=== PATIENT | female | born 2000 | race Caucasian/White ===

== ENCOUNTER → 2022-03-06 | Outpatient (CLI) | payer BC, OTHER ==
[2022-03-06 16:05] LABS: ALT 14 U/L (8-44); AST 15 U/L (13-35); African American GFR (CKD) 152.4 (60.0-200.0); Albumin 4.2 g/dL (3.8-4.9); Albumin/Globulin Ratio 1.59 (1.60-3.17); Alkaline Phosphatase 84 U/L (41-126); BUN/Creat Ratio 13.64 Ratio (12.00-20.00); Blood Urea Nitrogen 7.8 mg/dL (9.0-27.0); Calcium 9.5 mg/dL (8.7-10.3); Carbon Dioxide 20.5 mmol/L (20.0-27.5); Chloride 105 mmol/L (96-109); Chol/HDL Ratio 5.14 Ratio; Globulin 2.6 g/dL (1.6-3.3); Glucose 102 mg/dL (70-110); LDL Cholesterol,Calculated 149.2 mg/dL (0.0-131.0); Non-African American GFR(CKD) 131.5 (60.0-200.0); Potassium 4.7 mmol/L (3.5-5.5); Sodium 137 mmol/L (135-145); Total Protein 6.8 g/dL (6.2-8.2)
[2022-03-06 16:33] LABS: Basophils # (A) 0.04 X 10*3/uL (0.00-0.10); Basophils % (A) 0.5 %; Eosinophils # (A) 0.15 X 10*3/uL (0.04-0.35); Eosinophils % (A) 1.8 %; HCT 41.3 % (37.2-46.3); HGB 13.5 g/dL (12.0-15.0); Immature Grans, Automated 0.4 %; Lymphocytes # (A) 2.62 X 10*3/uL (0.90-5.00); Lymphocytes % (A) 32.1 %; MCH 26.1 pg (27.0-32.0); MCHC 32.7 g/dL (32.0-37.0); MCV 79.7 fL (80.0-97.0); Mean Platelet Volume 10.6 fL (9.5-12.2); Monocytes # (A) 0.45 X 10*3/uL (0.20-1.00); Monocytes % (A) 5.5 %; NRBC Per 100 WBC 0 /100 WBCS (0.0-0.0); Neutrophils # (A) 4.87 X 10*3/uL (1.80-7.70); Neutrophils % (A) 59.7 %; Platelet Count 285 X 10*3/uL (140-440); RBC 5.18 X 10*6/uL (4.10-5.20); RDW 14.5 % (11.5-14.5); WBC 8.16 X 10*3/uL (4.50-10.00)
[2022-03-06 18:19] LABS: Appearance,Urine Cloudy (Clear); Bilirubin,Urine Negative (Negative); Blood,Urine Negative (Negative); Color,Urine Yellow (Yellow); Ketones,Urine Negative (Negative); Nitrite,Urine Negative (Negative); Specific Gravity,Urine 1.011 (1.001-1.030); Urobilinogen,Urine 0.2 (0.2,1.0)
[2022-03-06 18:24] LABS: Bacteria,Urine 1+ /HPF (None Seen)
== END | disposition home or self-care (01) ==
LOC: LABWHC1 09:17
PROVIDERS: ATTEND Nurse Practitioner
DX: Z13.1 Encounter for screening for diabetes mellitus (principal); Z76.89 Persons encountering health services in other specified circumstances; Z13.29 Encounter for screening for other suspected endocrine disorder; R40.0 Somnolence; Z79.899 Other long term (current) drug therapy; Z13.220 Encounter for screening for lipoid disorders
CPT/HCPCS: 36415; 80053; 80061; 81001; 82306; 82607; 83036; 84439; 84443; 85025

== ENCOUNTER → 2022-04-01 | Outpatient (CLI) | payer BC, OTHER ==
[2022-04-02 09:57] LABS: Basophils # (A) 0.1 k/uL (0-0.2); Basophils % (A) 1 %; Eosinophils # (A) 0.1 k/uL (0-0.7); Eosinophils % (A) 1 %; Hypochromasia Slight; Lymphocytes # (A) 3.3 k/uL (1.0-4.8); Lymphocytes % (A) 34 %; MCH 26.3 pg (25.0-35.0); MCV 84.9 fL (80.0-100.0); Mean Platelet Volume 8.5; Monocytes # (A) 0.5 k/uL (0-1.0); Monocytes % (A) 5 %; Neutrophils # (A) 5.7 k/uL (1.3-7.7); Neutrophils % (A) 58 %; Platelet Count 291 k/uL (150-450); RBC 4.95 m/uL (3.80-5.40); RDW 15.6 % (11.5-15.5); WBC 9.7 k/uL (3.8-10.6)
[2022-04-02 10:36] LABS: Appearance,Urine Turbid (Clear); Bacteria,Urine Many /hpf; Bilirubin,Urine Negative (Negative); Blood,Urine Small (Negative); Color,Urine Yellow; Glucose,Urine (UA) Negative (Negative); Ketones,Urine Negative (Negative); Leukocyte Esterase,Urine Large (Negative); Mucus,Urine Few /hpf; Nitrite,Urine Negative (Negative); Protein,Urine 1+ (Negative); RBC,Urine 5 /hpf (0-5); Specific Gravity,Urine 1.027 (1.001-1.035); Squamous Epithelial Cell,Urine 39 /hpf (0-4); Urobilinogen,Urine <2.0 mg/dL (<2.0); WBC,Urine 51 /hpf (0-5)
== END | disposition home or self-care (01) ==
LOC: LABWHC1 15:22
PROVIDERS: ATTEND Nurse Practitioner
DX: Z32.01 Encounter for pregnancy test, result positive (principal); R31.9 Hematuria, unspecified; R30.0 Dysuria
CPT/HCPCS: 36415; 81001; 84702; 85025; 87086

== ENCOUNTER 2022-07-10 08:53 | Outpatient (CLI) | payer BC, OTHER ==
[2022-07-10 10:41] VITALS: BP 132/67; PULSE 106; RESP 18; TEMP 97.9
--- NOTE | 2022-07-10 10:54 | US ---
EXAMINATION TYPE: US OB >= 14 wk fetus DATE OF EXAM: 07/10/2022 COMPARISON: None CLINICAL HISTORY: decreased movement TECHNIQUE: Transabdominal (TA) GESTATIONAL AGE / DATING Physician Established: (20 weeks/1 days) EDC: 11/26/2022 Dates by Current Scan: (20 weeks/2 days) EDC: 11/25/2022 SURVEY IUP: Single PLACENTA: Posterior PREVIA: No Previa HERVE: 13.90 cm Normal CERVICAL LENGTH (transabdominal: norm > 3.0cm): 3.3 cm BIOMETRY PRESENTATION: Vertex LIE: Longitudinal BPD: 4.67 cm 20 weeks / 1 days HC: 17.48 cm 20 weeks / 1 days AC: 15.3 cm 20 weeks / 4 days FL: 3.3 cm 20 weeks / 2 days ESTIMATED WEIGHT IN GRAMS: 344 grams ESTIMATED WEIGHT IN LBS/OZ: 0 lbs. 12 oz. WEIGHT PERCENTAGE BASED ON ESTABLISHED DATES: 54% HC/AC: 1.15 Normal FL/AC: 21% Normal HEART RATE: 152 bpm RHYTHM: Normal MATERNAL WALL MEASUREMENT: 5.4 cm from skin to anterior uterine wall (if exam limited due to body hab itus). IMPRESSION: Single live intrauterine gestation as described above.
--- NOTE | 2022-07-10 10:57 | US ---
EXAMINATION TYPE: US OB BPP wo non-stress DATE OF EXAM: 07/10/2022 COMPARISON: NONE CLINICAL HISTORY: decreased movement. TECHNIQUE: Transabdominal (TA). Scoring by the bill of materials clerk during real-time assessment. FINDINGS: BPP PARAMETERS: PRESENTATION: Vertex LIE: Longitudinal?? HEART RATE: 152 bpm RHYTHM: Normal HERVE: 13.9 DIAPHRAGM IMAGED: Yes BPP SCORIN. Breathin (1 episode of breathing of 30 second duration in 30 minutes of scanning time) 2. Movement: 3 (at least 3 discrete body movements in 30 minutes) 3. Tone: 2 (1 episode of active flexion/extension of limb) 4. HERVE: 13.9: (HERVE index > 5cm) PROCESS CONTROL BOARD OPERATOR NOTES: Breathing not visualized. Gestational age is 20w1d. IMPRESSION: TOTAL SCORE: 6 / 8
--- NOTE | 2022-07-22 21:23 | P.MSEPDOC ---
Presenting Problems - Arrival Data Date of Arrival on Unit: 07/10/22 Time of Arrival on Unit: 08:53 Mode of Transport: Portable - Complaint OB-Reason for Admission/Chief Complaint: Decreased Movement Medical History - Information : 2 Para: 1 Term: 1 : 0 Abortions: Spontaneous or Elective: 0 Number of Living Children: 1 - Gestational Age Gestational Age by ARTEMIO (wks/days): 20 Weeks and 1 Days Review of Systems - Review of Systems Constitutional: No problems Breast: No problems ENT: No problems Cardiovascular: No problems Respiratory: No problems Gastrointestinal: No problems Genitourinary: No problems Musculoskeletal: No problems Neurological: No problems Skin: No problems Vital Signs - Temperature Temperature: 97.9 F Temperature Source: Oral - Pulse Right Sitting Brachial Pulse Rate: 106 Pulse Assessment Method: Auscultation - Respirations Respiratory Rate: 18 Oxygen Delivery Method: Room Air O2 Sat by Pulse Oximetry: 100 - Blood Pressure Right Arm Sitting Blood Pressure: 132/67 Blood Pressure Mean: 88 Blood Pressure Source: Automatic Cuff Physician Notification - Physician Notified Physician Notified Date: 07/10/22 Physician Notified Time: 10:30 Physician: Shaista Barajas New Order Received: Yes - Notification Comment Comment: Dc home. Follow up in the office as scheduled. Maternal Triage Index - Maternal Triage Index Presenting for scheduled procedure w/no complaint: No - Stat/Priority 1 Stat Priority 1: No - Urgent/Priority 2 Urgent Priority 2: Yes Provider Notified: Shaista Barajas Provider Notified Time: 09:00 Criteria Met for Priority 2: Decreased movement, US done today. Disposition - Disposition OB Disposition: Discharge to home Discharge Date: 07/10/22 Discharge Time: 10:37 I agree with the RN Medical Screening Exam: Yes Case reviewed; plan agreed upon as documented in EMR&OBIX.: Yes Diagnosis: DECREASED MOVEMENTS, SECOND TRIMESTER, FETUS 1
== END 2022-07-10 10:44 | disposition home or self-care (01) ==
LOC: FBPOP 08:53
PROVIDERS: ATTEND Obstetrics & Gynecology
DX: O36.8121 Decreased fetal movements, second trimester, fetus 1 (principal); Z3A.20 20 weeks gestation of pregnancy
CPT/HCPCS: 76805; 76819; 99213

== ENCOUNTER → 2022-08-11 | Outpatient (CLI) | payer BC, OTHER ==
[2022-08-11 17:58] LABS: HCT 34.3 % (37.2-46.3); HGB 10.9 g/dL (12.0-15.0); MCH 26.3 pg (27.0-32.0); MCHC 31.8 g/dL (32.0-37.0); MCV 82.7 fL (80.0-97.0); Mean Platelet Volume 10.3 fL (9.5-12.2); NRBC Per 100 WBC 0 /100 WBCS (0.0-0.0); Platelet Count 284 X 10*3/uL (140-440); RBC 4.15 X 10*6/uL (4.10-5.20); RDW 15.4 % (11.5-14.5); WBC 10.71 X 10*3/uL (4.50-10.00)
== END | disposition home or self-care (01) ==
LOC: LABWHC1 10:01
PROVIDERS: ATTEND Obstetrics & Gynecology
DX: Z34.82 Encounter for supervision of other normal pregnancy, second trimester (principal); Z3A.00 Weeks of gestation of pregnancy not specified
CPT/HCPCS: 36415; 82950; 85027